=== PATIENT | female | born 1985 | race Caucasian/White ===

== ENCOUNTER 2016-11-07 17:55 | Emergency (ER) | payer OTHER ==
[~2016-11-07] VITALS: Ht 162.6 cm; Wt 73.5 kg
[2016-11-07 18:02] VITALS: BP 152/92
--- NOTE | 2016-11-07 19:23 | NUR ---
TO ER OF1
--- NOTE | 2016-11-07 19:24 | NUR ---
Patient being evaluated by physician.
--- NOTE | 2016-11-07 19:45 | NUR ---
Pupils equal and reactive to light bilaterally. No facial droop noted. No smile deficit noted. Speech normal for patient. Patient is alert and oriented to person, place, time and event. Bilateral hand changeover operator equal. Bilateral foot push equal.
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
[2016-11-07 20:09] VITALS: BP 152/92
--- NOTE | 2016-11-07 20:10 | NUR ---
Patient discharged with v/s stable. Written and verbal after care instructions given and explained. Patient alert, oriented and verbalized understanding of instructions. Ambulatory with steady gait. All questions addressed prior to discharge. ID band removed. Patient advised to follow up with PMD. Rx of FLEXERIL AND IBUPROFEN given. Patient educated on indication of medication including possible reaction and side effects. Opportunity to ask questions provided and answered.
== END 2016-11-07 20:10 | disposition home or self-care (01) ==
LOC: MED 17:55
DX: M54.2 Cervicalgia (principal); M54.5 Low back pain; Z04.1 Encounter for examination and observation following transport accident